=== PATIENT | female | born 1945 | race Caucasian/White ===

== ENCOUNTER 2017-09-22 11:14 | Emergency (ER) | payer MEDICARE ==
[~2017-09-22] VITALS: Ht 165.1 cm; Wt 52.3 kg
[2017-09-22 12:02] LABS: CLARITY,URINE CLEAR (Clear); COLOR,URINE YELLOW (Yellow); GLUCOSE, URINE NEGATIVE (Neg); KETONES,URINE TRACE mg/dl (Neg); LEUKOCYTE ESTERASE ,URINE NEGATIVE (Neg); NITRITES, URINE NEGATIVE (Neg); OCCULT BLOOD,URINE SMALL (Neg); PH,URINE 6.5 (4.8-8.0); PROTEIN,URINE NEGATIVE (Neg); UROBILINOGEN,URINE 0.2 E.U/dL (0.2-1.0)
[2017-09-22 12:04] LABS: BASOPHILS % (AUTO) 0.5 % (0-1); EOSINOPHILS # (AUTO) 0.1 X10'3 (0-0.9); EOSINOPHILS % (AUTO) 0.9 % (0-6); HEMATOCRIT 43.7 % (35.0-45.0); HEMOGLOBIN 14.7 g/dl (12.0-16.0); LYMPHOCYTES # (AUTO) 1.8 X10'3 (1.1-4.8); MEAN CORPUSCULAR HEMOGLOBIN 32.2 PG (27.0-31.0); MEAN CORPUSCULAR HGB CONC 33.7 % (33.0-36.5); MEAN CORPUSCULAR VOLUME 95.6 FL (78-98); MONOCYTES # (AUTO) 0.7 X10'3 (0-0.9); MONOCYTES % (AUTO) 10.4 % (2-12); NEUTROPHILS # (AUTO) 3.8 X10'3 (1.8-7.7); NEUTROPHILS % (AUTO) 60.2 % (42-75); PLATELET COUNT 257 X10'3 (140-440); RED BLOOD COUNT 4.57 X10'6 (4.20-5.60); RED CELL DISTRIBUTION WIDTH 13.3 % (11.5-14.5); WHITE BLOOD COUNT 6.4 X10'3 (4.5-11.0)
[2017-09-22 12:09] LABS: UA COLLECTION TYPE CLN CATCH MIDSTREAM
[2017-09-22 12:10] LABS: BACTERIA,URINE NONE SEEN /HPF (Neg); MUCUS STRANDS NONE SEEN /LPF (Neg); RBC,URINE 0-2 /HPF (0-2); SQUAMOUS EPITHELIAL CELL,UR NONE SEEN /LPF (FEW); WBC,URINE NONE SEEN /HPF (0-4)
[2017-09-22 12:21] LABS: ALANINE AMINOTRANSFERASE 21 U/L (12-78); ALBUMIN 4.1 G/DL (3.4-5.0); ALKALINE PHOSPHATASE 82 IU/L (46-116); ANION GAP 9 (8-16); ASPARTATE AMINO TRANSFERASE 24 U/L (10-37); BILIRUBIN,TOTAL 0.5 MG/DL (0.1-1.0); BLOOD UREA NITROGEN 10 MG/DL (7-18); BUN/CREATININE RATIO 9.7 (6.6-38.0); CALCIUM 9.2 MG/DL (8.5-10.1); CHLORIDE 101 MMOL/L (99-107); CREATININE 1.03 MG/DL (0.40-0.90); GLUCOSE 108 MG/DL (70-104); POTASSIUM 3.3 MMOL/L (3.5-5.1); SODIUM 137 MMOL/L (135-145); TOTAL CARBON DIOXIDE 27.1 MMOL/L (24-32); TOTAL PROTEIN 8.1 G/DL (6.4-8.2); eGFR 53 ML/MIN
[2017-09-22] MEDS ORDERED: POTA20TA19 PO (13:59)
[2017-09-22] MEDS ORDERED: ONDA4TAB12 PO (13:59)
[2017-09-22] MEDS ORDERED: ketorolac trometh inj. 60 MG/2 ML VIAL IM ONE (14:00)
[2017-09-22] MEDS ORDERED: ondansetron 4mg rapidly disintigrating tab PO ONE (14:00)
[2017-09-22 14:10] VITALS: BP 136/78
== END 2017-09-22 14:48 | disposition home or self-care (01) ==
LOC: ER 11:16
DX: S00.01XA Abrasion of scalp, initial encounter (principal); E86.0 Dehydration; Z87.891 Personal history of nicotine dependence; Z60.2 Problems related to living alone; Z88.2 Allergy status to sulfonamides; Z79.899 Other long term (current) drug therapy; X58.XXXA Exposure to other specified factors, initial encounter; Y93.89 Activity, other specified; Y92.89 Other specified places as the place of occurrence of the external cause; Y99.8 Other external cause status
CPT/HCPCS: 36415; 80053; 81001; 85025; 85610; 96372; 99284; J1885

== ENCOUNTER 2020-02-29 12:54 | Emergency (ER) | payer BC, MEDICARE ==
[~2020-02-29] VITALS: Ht 165.1 cm; Wt 62.0 kg
[~2020-02-29 12:54] MED LIST: ONDA4TAB12 PO
[2020-02-29 14:08] LABS: BASOPHILS # (AUTO) 0.1 X10'3 (0-0.2); BASOPHILS % (AUTO) 0.8 % (0-1); EOSINOPHILS % (AUTO) 0.7 % (0-6); HEMATOCRIT 40.6 % (35.0-45.0); HEMOGLOBIN 13.7 g/dl (12.0-16.0); LYMPHOCYTES % (AUTO) 15.9 % (21-51); MEAN CORPUSCULAR HEMOGLOBIN 33.3 PG (27.0-31.0); MEAN CORPUSCULAR HGB CONC 33.9 g/dL (33.0-36.5); MEAN CORPUSCULAR VOLUME 98.3 FL (78-98); MEAN PLATELET VOLUME 7.8 FL (7.4-10.4); MONOCYTES # (AUTO) 0.4 X10'3 (0-0.9); MONOCYTES % (AUTO) 5.8 % (2-12); NEUTROPHILS # (AUTO) 4.9 X10'3 (1.8-7.7); NEUTROPHILS % (AUTO) 76.8 % (42-75); PLATELET COUNT 251 X10'3 (140-440); RED BLOOD COUNT 4.13 X10'6 (4.20-5.60); RED CELL DISTRIBUTION WIDTH 13.6 % (11.5-14.5); WHITE BLOOD COUNT 6.4 X10'3 (4.5-11.0)
[2020-02-29 14:20] LABS: ALANINE AMINOTRANSFERASE 28 U/L (12-78); ALBUMIN 4.1 G/DL (3.4-5.0); ALBUMIN/GLOBULIN RATIO 1.1 (1.1-1.5); ALKALINE PHOSPHATASE 99 IU/L (46-116); ANION GAP 9 (8-16); ASPARTATE AMINO TRANSFERASE 30 U/L (10-37); BILIRUBIN,TOTAL 0.4 MG/DL (0.1-1.0); BLOOD UREA NITROGEN 11 MG/DL (7-18); BUN/CREATININE RATIO 11.3 (6.6-38.0); CALCIUM 8.8 MG/DL (8.5-10.1); CHLORIDE 107 MMOL/L (99-107); CREATININE 0.97 MG/DL (0.40-0.90); GLUCOSE 100 MG/DL (70-104); POTASSIUM 3.8 MMOL/L (3.5-5.1); SODIUM 142 MMOL/L (135-145); TOTAL CARBON DIOXIDE 26.1 MMOL/L (24-32); TOTAL PROTEIN 7.8 G/DL (6.4-8.2); eGFR 56 ML/MIN
[2020-02-29 17:25] VITALS: BP 166/85
[2020-02-29] MEDS ORDERED: acetaminophen 325mg tablet PO ONE (18:40)
[2020-02-29] MEDS ORDERED: ALBU8HFA PO (18:43)
== END 2020-02-29 19:10 | disposition home or self-care (01) ==
LOC: ER 12:54
DX: R07.89 Other chest pain (principal); E03.9 Hypothyroidism, unspecified; J45.909 Unspecified asthma, uncomplicated; Z60.9 Problem related to social environment, unspecified; Z88.2 Allergy status to sulfonamides; Z88.8 Allergy status to other drugs, medicaments and biological substances
CPT/HCPCS: 36415; 71045; 80053; 83880; 84484; 85025; 93005; 99285

== ENCOUNTER 2022-07-29 09:08 | Day surgery (SDC) | payer MEDICARE, MEDICAID ==
[2022-07-25 12:20] LABS: ALBUMIN 3.8 G/DL (3.4-5.0); ALBUMIN/GLOBULIN RATIO 1.1 (1.1-1.5); ALKALINE PHOSPHATASE 88 IU/L (46-116); BLOOD UREA NITROGEN 15 MG/DL (7-18); BUN/CREATININE RATIO 17.9 (10.0-20.0); CHLORIDE 104 MMOL/L (99-107); CREATININE 0.84 MG/DL (0.40-0.90); PRE OP ALT 18 U/L (30-65); PRE OP ANION GAP 8 (8-16); PRE OP AST 20 U/L (10-37); PRE OP BILIRUB, TOTAL 0.3 MG/DL (0.0-1.0); PRE OP GLUCOSE 100 MG/DL (70-104); PRE OP POTASSIUM 4.5 MMOL/L (3.4-5.1); PRE OP SODIUM 137 MMOL/L (135-145); TOTAL CARBON DIOXIDE 25.4 MMOL/L (24-32); TOTAL PROTEIN 7.2 G/DL (6.4-8.2); eGFR 66 ML/MIN
[2022-07-25 12:28] LABS: BASOPHILS # (AUTO) 0.1 X10'3 (0-0.2); BASOPHILS % (AUTO) 1.3 % (0-1); EOSINOPHILS # (AUTO) 0.2 X10'3 (0-0.9); EOSINOPHILS % (AUTO) 3.7 % (0-6); LYMPHOCYTES # (AUTO) 1.1 X10'3 (1.1-4.8); LYMPHOCYTES % (AUTO) 21.9 % (21-51); MEAN CORPUSCULAR HEMOGLOBIN 32.4 PG (27.0-31.0); MEAN CORPUSCULAR HGB CONC 33.6 g/dL (33.0-36.5); MEAN CORPUSCULAR VOLUME 96.4 FL (78-98); MEAN PLATELET VOLUME 8.5 FL (7.4-10.4); MONOCYTES # (AUTO) 0.5 X10'3 (0-0.9); MONOCYTES % (AUTO) 10.7 % (2-12); NEUTROPHILS # (AUTO) 3.2 X10'3 (1.8-7.7); NEUTROPHILS % (AUTO) 62.4 % (42-75); PRE OP HEMOGLOBIN 13.4 g/dL (12.0-16.0); PRE OP PLATELET COUNT 240 X10'3 (140-440); RED BLOOD COUNT 4.15 X10'6 (4.20-5.60); RED CELL DISTRIBUTION WIDTH 13.9 % (11.5-14.5)
[~2022-07-29] VITALS: Ht 165.1 cm; Wt 64.1 kg
[~2022-07-29 09:08] MED LIST changes: +ASPI-1265 PO; +CHOL100017 PO; +CYAN100T47 PO; +FISH OIL PO; +IBUP-1986 PO; +LEVO100T9 PO; +MATURE MULTIVITAMIN PO; -ONDA4TAB12 PO; +famotidine 20mg tablet PO ONE; +ringers solution, lacted 1,000 ML IV SCH
[2022-07-29] MEDS ORDERED: cefazolin 2gm/D5W 100mL 100 ML IV ONE (11:20)
[2022-07-29] MEDS ORDERED: ringers solution, lacted 1,000 ML IV SCH ×2 (11:20→13:20)
[2022-07-29] MEDS ORDERED: meperidine/PF 25mg/ml syringe IV PRN ×3 (13:20)
[2022-07-29] MEDS ORDERED: morphine 2 MG/ML inj. syringe IV PRN (13:20)
[2022-07-29] MEDS ORDERED: proCHLORperazine 10 MG/2 ml inj IV PRN (13:20)
[2022-07-29] MEDS ORDERED: labetalol 20mg/4ml (5mg/ml) syringe IV PRN (13:20)
[2022-07-29] MEDS ORDERED: acetaminophen 1,000mg/100ml IV 100 ML IV PRN (13:20)
[2022-07-29] MEDS ORDERED: morphine 4 MG/ML inj SYRINge IV PRN (13:20)
[2022-07-29] MEDS ORDERED: hydrALAZINE 20mg/ml inj. IV PRN (13:20)
[2022-07-29] MEDS ORDERED: ondansetron/PF 4mg/2ml inj IV PRN (13:20)
[2022-07-29] MEDS ORDERED: propofol 10mg/ml 20ml vial IV ONE (14:38)
[2022-07-29] MEDS ORDERED: fentaNYL/PF 50MCG/1 ML 2ML syringe ONE (14:45)
[2022-07-29] MEDS ORDERED: midazolam 1 mg/ML 2ml injection ONE (14:58)
[2022-07-29 15:13] VITALS: BP 142/79
[2022-07-29 15:14] VITALS: BP 142/79
[2022-07-29] MEDS ORDERED: BUPIVAcaine/PF 2.5mg/ml (0.25%) 10ml vial IJ ONE (15:36)
[2022-07-29] MEDS ORDERED: BUPIVAcaine/PF 2.5 mg/ml (0.25%) 30ml vial IJ ONE (15:36)
[2022-07-29 15:55] VITALS: BP 127/78
--- NOTE | 2022-07-29 15:55 | NUR ---
Received from OR via [facility], accompanied by Anesthesiologist and report given by KEVON Anesthesiologist. PATIENT WAKING UP, DENIES PAIN, V/S WNL, PIV 20G TO LEFT FOREARM, LEFT WRIST DRESSING C/D/I. ICE AND ELEVATED LUE. Addendum: 07/29/22 at 1625 by Chase Akhtar RN Amended: Links added.
[2022-07-29 16:00] VITALS: BP 141/87
[2022-07-29 16:10] VITALS: BP 147/86
[2022-07-29 16:20] VITALS: BP 159/71
--- NOTE | 2022-07-29 16:25 | NUR ---
ALL DISCHARGE CRITERIA HAS BEEN MET. VSS, PAIN AT A TOLERABLE LEVEL, ABLE TO SAFELY AMBULATE AND TRANSFER SELF. IV TAKEN OUT WITHOUT ANY COMPLICATIONS. ALL DISCHARGE INSTRUCTIONS COVERED WITH PATIENT AND ALL QUESTIONS ANSWERED. PATIENT TAKEN OUT VIA WHEELCHAIR WITH ALL BELONGINGS TO PERSONAL VEHICLE WHERE FAMILY DROVE PATIENT HOME. Addendum: 07/29/22 at 1634 by Chase Akhtar RN Amended: Links added.
== END 2022-07-29 16:25 | disposition home or self-care (01) ==
LOC: PAS 09:08
PROVIDERS: ATTEND Orthopaedic Surgery Hand Surgery
DX: M18.12 Unilateral primary osteoarthritis of first carpometacarpal joint, left hand (principal); J43.9 Emphysema, unspecified; E03.9 Hypothyroidism, unspecified; M81.0 Age-related osteoporosis without current pathological fracture; G47.33 Obstructive sleep apnea (adult) (pediatric); M16.10 Unilateral primary osteoarthritis, unspecified hip; Z79.899 Other long term (current) drug therapy; Z79.82 Long term (current) use of aspirin; Z88.2 Allergy status to sulfonamides; Z98.51 Tubal ligation status; Z98.890 Other specified postprocedural states; Z72.89 Other problems related to lifestyle; Z87.891 Personal history of nicotine dependence
CPT/HCPCS: 25310; 25447; 36415; 80053; 82948; 85025; 93005; A6222; J2250; J3010; J3490; J7030; J7120; Z7506; Z7508; Z7512; A4215; A4618; A7000; J0690; J2704

== ENCOUNTER 2023-09-27 10:16 | Outpatient (CLI) | payer MEDICARE, MEDICAID ==
[~2023-09-27] VITALS: Ht 165.1 cm; Wt 61.2 kg
[~2023-09-27 10:16] MED LIST changes: -famotidine 20mg tablet PO ONE; -ringers solution, lacted 1,000 ML IV SCH
[2023-09-27] MEDS: albuterol 2.5 MG/3 ML nebule NEB ONE (10:53)
[2023-09-27 10:57] VITALS: PULSE 76; RESP 18; O2SAT 96
[2023-09-27 11:19] VITALS: PULSE 74
== END 2023-09-27 23:59 | disposition home or self-care (01) ==
LOC: RT 10:16
PROVIDERS: ATTEND Family Medicine
DX: I34.81 Nonrheumatic mitral (valve) annulus calcification (principal); R06.02 Shortness of breath; R94.39 Abnormal result of other cardiovascular function study
CPT/HCPCS: 94060; 94729; 94760; C8929; 93306

== ENCOUNTER 2023-12-25 05:59 | Day surgery (SDC) | payer MEDICARE, MEDICAID ==
[2023-12-20 11:56] LABS: BASOPHILS # (AUTO) 0.1 X10'3 (0-0.2); BASOPHILS % (AUTO) 1.1 % (0-1); EOSINOPHILS # (AUTO) 0.1 X10'3 (0-0.9); EOSINOPHILS % (AUTO) 2.8 % (0-6); LYMPHOCYTES # (AUTO) 1.4 X10'3 (1.1-4.8); LYMPHOCYTES % (AUTO) 28.6 % (21-51); MEAN CORPUSCULAR HEMOGLOBIN 32.7 PG (27.0-31.0); MEAN CORPUSCULAR HGB CONC 33.4 g/dL (33.0-36.5); MEAN CORPUSCULAR VOLUME 97.9 FL (78-98); MEAN PLATELET VOLUME 7.9 FL (7.4-10.4); MONOCYTES # (AUTO) 0.6 X10'3 (0-0.9); MONOCYTES % (AUTO) 10.9 % (2-12); NEUTROPHILS # (AUTO) 2.9 X10'3 (1.8-7.7); NEUTROPHILS % (AUTO) 56.6 % (42-75); PRE OP HEMATOCRIT 41.3 % (35.0-45.0); PRE OP HEMOGLOBIN 13.8 g/dL (12.0-16.0); PRE OP PLATELET COUNT 242 X10'3 (140-440); RED BLOOD COUNT 4.22 X10'6 (4.20-5.60); RED CELL DISTRIBUTION WIDTH 13.7 % (11.5-14.5)
[2023-12-20 12:05] LABS: ALBUMIN 3.8 G/DL (3.4-5.0); ALBUMIN/GLOBULIN RATIO 1.1 (1.1-1.5); ALKALINE PHOSPHATASE 91 IU/L (46-116); BLOOD UREA NITROGEN 13 MG/DL (7-18); BUN/CREATININE RATIO 14.9 (10.0-20.0); CALCIUM 8.7 MG/DL (8.5-10.1); CHLORIDE 102 MMOL/L (99-107); CREATININE 0.87 MG/DL (0.40-0.90); PRE OP ALT 22 U/L (30-65); PRE OP ANION GAP 4 (8-16); PRE OP AST 25 U/L (10-37); PRE OP BILIRUB, TOTAL 0.4 MG/DL (0.0-1.0); PRE OP GLUCOSE 89 MG/DL (70-104); PRE OP POTASSIUM 4.1 MMOL/L (3.4-5.1); PRE OP SODIUM 136 MMOL/L (135-145); TOTAL CARBON DIOXIDE 29.7 MMOL/L (24-32); TOTAL PROTEIN 7.4 G/DL (6.4-8.2); eGFR 63 ML/MIN
[~2023-12-25] VITALS: Ht 165.1 cm; Wt 62.3 kg
[2023-12-25] MEDS: cefazolin 2gm/D5W 100mL 100 ML IV ONE (05:30)
[~2023-12-25 05:59] MED LIST changes: +ACET-2778 PO; -CHOL100017 PO; -CYAN100T47 PO; +DIPH25CA51 PO
[2023-12-25 06:10] VITALS: BP 134/77; PULSE 70; RESP 16; TEMP 98.4; O2SAT 98
[2023-12-25] MEDS: famotidine 20mg tablet PO ONE (07:00)
[2023-12-25] MEDS: ringers solution, lacted 1,000 ML IV SCH (07:01)
[2023-12-25] MEDS ORDERED: meperidine/PF 25mg/ml syringe IV PRN ×3 (08:05)
[2023-12-25] MEDS ORDERED: morphine 4 MG/ML inj SYRINge IV PRN (08:05)
[2023-12-25] MEDS ORDERED: proCHLORperazine 10 MG/2 ml inj IV PRN (08:05)
[2023-12-25] MEDS ORDERED: ringers solution, lacted 1,000 ML IV SCH (08:05)
[2023-12-25] MEDS ORDERED: morphine 2 MG/ML inj. syringe IV PRN (08:05)
[2023-12-25] MEDS ORDERED: midazolam 1 mg/ML 2ml injection ONE (08:13)
[2023-12-25] MEDS ORDERED: fentaNYL/PF 50MCG/1 ML 2ML syringe ONE (08:13)
[2023-12-25] MEDS ORDERED: propofol inj 20 ML IV ONE (08:13)
[2023-12-25 08:57] VITALS: BP 124/68; PULSE 75; RESP 15; O2SAT 97
[2023-12-25 09:10] VITALS: BP 139/74; PULSE 68; RESP 18; O2SAT 98
[2023-12-25] MEDS: ondansetron/PF 4mg/2ml inj IV PRN (09:19)
[2023-12-25 09:20] VITALS: BP 141/80; PULSE 65; RESP 16; O2SAT 98
[2023-12-25] MEDS: BUPIVAcaine/PF 2.5mg/ml (0.25%) 10ml vial ONE (09:28)
[2023-12-25 09:30] VITALS: BP 149/73; PULSE 66; RESP 17; O2SAT 97
[2023-12-25] MEDS: LIDOcaine 2% (20mg/ml) 5ml vial ONE (09:31)
[2023-12-25 09:37] VITALS: BP 154/77; PULSE 68; RESP 16; O2SAT 98
== END 2023-12-25 09:37 | disposition home or self-care (01) ==
LOC: PAS 05:59
PROVIDERS: ATTEND Orthopaedic Surgery Hand Surgery
DX: G56.01 Carpal tunnel syndrome, right upper limb (principal); R94.31 Abnormal electrocardiogram [ECG] [EKG]; I25.2 Old myocardial infarction; E03.9 Hypothyroidism, unspecified; J43.9 Emphysema, unspecified; M81.0 Age-related osteoporosis without current pathological fracture; G47.33 Obstructive sleep apnea (adult) (pediatric); M19.90 Unspecified osteoarthritis, unspecified site; Z87.891 Personal history of nicotine dependence; Z79.1 Long term (current) use of non-steroidal anti-inflammatories (NSAID); Z79.82 Long term (current) use of aspirin; Z79.890 Hormone replacement therapy; Z98.51 Tubal ligation status; Z98.890 Other specified postprocedural states; Z88.2 Allergy status to sulfonamides
CPT/HCPCS: 36415; 80053; 82948; 85025; 93005; A4215; A6449; J0690; J2250; J2405; J2704; J3010; J3490; J7120